=== PATIENT | male | born 1945 | race Caucasian/White ===

== ENCOUNTER 2019-03-30 07:40 | Day surgery (SDC) | payer MEDICARE ==
[2019-03-27 15:17] VITALS: BP 136/65
[2019-03-27 15:17] LABS: BASOPHILS % (AUTO) 1.1 % (0.0-5.0); EOSINOPHILS % (AUTO) 1.1 % (0.0-8.0); LYMPHOCYTES % (AUTO) 19.1 % (21.0-51.0); MEAN CORPUSCULAR HEMOGLOBIN 30.1 pg (27.0-33.0); MEAN CORPUSCULAR HGB CONC 33.5 g/dL (32.0-36.0); MEAN CORPUSCULAR VOLUME 89.9 fL (79-99); NEUTROPHILS % (AUTO) 68.7 % (40.0-77.0); NUCLEATED RED BLOOD CELLS 0.1 % (0.0-0.19); PLATELET COUNT (AUTO) 286 K/uL (130-400); RED BLOOD CELL COUNT(AUTO) 5.01 MIL/uL (4.50-6.20); RED CELL DISTRIBUTION WIDTH 14.5 % (11.0-15.5); WHITE BLOOD COUNT (AUTO) 13.8 K/uL (4.8-10.8)
[2019-03-27 15:31] LABS: INR 0.97 (0.85-1.15); PARTIAL THROMBOPLASTIN TIME 28.5 SEC (26.3-35.5); PROTHROMBIN TIME 10.2 SEC (9.6-11.6)
[2019-03-27 15:39] LABS: CREATININE 1.1 mg/dL (0.5-1.5); POTASSIUM 4.3 mmol/L (3.5-5.1)
--- NOTE | 2019-03-29 16:13 | NUR ---
GENEVIEVE DE LOS SANTOS ON PHONE. PER DR. CORTEZ IN REGARDS TO LABS, PROCEED WITH PLANNED PROCEDURE. NO ORDERS RECEIVED.
[2019-03-30] VITALS (17 sets, daily range): BP systolic 117–142; BP diastolic 59–74
[~2019-03-30] VITALS: Ht 188 cm; Wt 128.1 kg
[~2019-03-30 07:40] MED LIST: CETI-101 PO; CHOL500050 PO; DULA1.5P SQ; LOSA1TAB37 PO; MONT10TA21 PO; PROP40TA7 PO
[2019-03-30] MEDS ORDERED: CEFAZOLIN SODIUM 1 GM VIAL ONE (09:28)
[2019-03-30] MEDS ORDERED: SODIUM CHLORIDE 0.9% 1000ML 1,000 ML IV ONE (09:29)
[2019-03-30] MEDS: CEFAZOLIN SODIUM 1 GM VIAL IVP ONE ×2 (09:43→10:25)
[2019-03-30] MEDS ORDERED: MIDAZOLAM HCL 1 MG/ML 2ML VIAL ONE ×2 (09:59→10:08)
[2019-03-30] MEDS ORDERED: GLYB-228 PO ×2 (10:06)
[2019-03-30] MEDS ORDERED: PIOG30TA70 PO (10:06)
[2019-03-30] MEDS ORDERED: ASPI-1026 PO (10:06)
[2019-03-30] MEDS ORDERED: ATOR10TA69 PO (10:06)
[2019-03-30] MEDS ORDERED: LIDOCAINE PF 2% 5ML ABBOJECT ONE (10:08)
[2019-03-30] MEDS ORDERED: DEXAMETHASONE SOD PHOSPHATE 10MG/ML 1ML VIAL ONE (10:08)
[2019-03-30] MEDS ORDERED: PROPOFOL 10 MG/ML 20ML VIAL IV ONE (10:09)
[2019-03-30] MEDS ORDERED: ONDANSETRON HCL 4 MG/2 ML VIAL ONE (10:09)
[2019-03-30] MEDS ORDERED: FENTANYL CITRATE PF 50 MCG/1 ML 2ML VIAL ONE (10:10)
[2019-03-30] MEDS ORDERED: BUPIVACAINE/PF 0.25% 30ML VIAL IJ ONE (10:39)
[2019-03-30] MEDS ORDERED: ROCURONIUM 10MG/1ML SYR 10 MG/ML ML ONE (10:46)
[2019-03-30] MEDS ORDERED: GLYCOPYRROLATE 1 MG/5 ML SYRINGE ONE (11:57)
[2019-03-30] MEDS ORDERED: NEOSTIGMINE 5MG/5ML SYR IV ONE (11:57)
[2019-03-30] MEDS ORDERED: MEPERIDINE-PF 25 MG/ML SYG ONE ×2 (12:30→12:44)
== END 2019-03-30 14:27 | disposition home or self-care (01) ==
LOC: DAH 07:40
PROVIDERS: ATTEND Urology
DX: C83.35 Diffuse large B-cell lymphoma, lymph nodes of inguinal region and lower limb (principal); N50.9 Disorder of male genital organs, unspecified; E11.9 Type 2 diabetes mellitus without complications; I10 Essential (primary) hypertension; J45.909 Unspecified asthma, uncomplicated; E66.9 Obesity, unspecified; E78.5 Hyperlipidemia, unspecified; Z88.8 Allergy status to other drugs, medicaments and biological substances; Z79.899 Other long term (current) drug therapy; Z98.890 Other specified postprocedural states; Z79.01 Long term (current) use of anticoagulants; Z79.82 Long term (current) use of aspirin
CPT/HCPCS: 36415; 54535; 71045; 80048; 82105; 82948 ×3; 83615; 84702; 85025; 85610; 85730; 88309; 88341; 88342; 88360; 93005; A4600; A4930; J0690; J1100; J2001; J2175 ×2; J2250 ×2; J2405; J2704; J2710; J3010; J3490 ×2; J7030

== ENCOUNTER 2019-04-03 17:57 | Emergency (ER) | payer MEDICARE ==
[~2019-04-03 17:57] MED LIST changes: +ASPI-1026 PO; +ATOR10TA69 PO; +GLYB-228 PO; +PIOG30TA70 PO
[2019-04-03] MEDS ORDERED: MORPHINE SULFATE 4 MG/1ML SYG ONE (18:20)
== END 2019-04-03 20:18 | disposition home or self-care (01) ==
LOC: EDH 17:57
DX: R33.9 Retention of urine, unspecified (principal); R10.9 Unspecified abdominal pain; E11.9 Type 2 diabetes mellitus without complications; Z87.891 Personal history of nicotine dependence; Z88.8 Allergy status to other drugs, medicaments and biological substances
CPT/HCPCS: 51702; 96374; 99284; J2270